=== PATIENT | female | born 1950 | race Two or more races ===

== ENCOUNTER 2018-11-14 07:09 | Inpatient (IN) ==
--- NOTE | 2018-10-22 15:39 | PAT Medication Instructions ---
Medication Instructions Date of Service October 22, 2018 Home Medications calcium crb,[id number] [Citracal + Bone Density] 2 tab PO QPM rosuvastatin 10 mg PO QPM DO NOT take the morning of surgery Citracal + Bone Density 2 tab PO QPM Take evening before surgery rosuvastatin 10 mg PO QPM Other Notes NOTHING TO EAT OR DRINK AFTER MIDNIGHT If you have any questions please call us at [phone] or [phone] or [phone] or [phone]
--- NOTE | 2018-10-24 09:19 | Anesthesiology Consultation ---
Date of Service October 24, 2018 Assessment & Plan (1) Encounter for pre-operative examination: Possible difficult intubation: due to anatomy. Chart Review Chart Review: Acceptable Risk for Surgery and Patient seen in Pre Admission Testing Teaching & Discussion Pre-Anesthesia Teaching/Discussion Notes: Instructed NPO after midnight before surgery,except medications with 15 cc of water. Medication instructions provided according to the PAT guidelines. History Surgery Operation Date: 11/14/18 07:30 Proposed Procedures p Right Robotic Video Assisted Thoracoscopy with Resection of Mediastinal Mass - Nilton Peters MD, FACS Height/Weight Height: 5 ft Weight: 60.8 kg Allergies Allergy/AdvReac Type Severity Reaction Status Date / Time No Known Allergies Allergy Verified 10/18/18 09:04 Medications Home Medications Medication Instructions Recorded Confirmed Last Taken calcium crb,vnt-H2-[id number]-genis 2 tab PO QPM 10/18/18 10/18/18 Unknown [Citracal + Bone Density] rosuvastatin 10 mg PO QPM 10/18/18 10/18/18 Unknown Past Medical History Medical History Hyperlipidemia Mediastinal mass reason for upcoming surgery Sleep apnea CPAP Exercise / Class Metabolic Activity II 4-5 Yardwork/Stairs/Walk up hill Past Family History Family History Brother Family history of diabetes mellitus Past Surgical History Surgical History History of colonoscopy History of dilatation and curettage History of esophagogastroduodenoscopy (EGD) Past Anesthesia History No Hx of Anesthesia Complications and No Family Hx of Anesthesia Complications History of PONV No Hx of PONV and Hx of Motion Sickness (remote hx as child) Social History Smoking Status: Never smoker Do You Dip or Chew Tobacco: No Hx Alcohol Use: No Hx Substance Use: No substance use type: does not use Review of Systems Patient denies chest pain, shortness of breath, dyspnea on exertion, reflux, cough, wheezing, palpitations. Physical Exam Vital Signs VITALS BP 152/94 (Patient advised to followup with PCP regarding elevated BP- patient very anxious regarding surgery) P 79 TEMP 98.2 SP02 98%RA RESP 18 PHYSICAL Full neck and c-spine range of motion. Full TMJ range of motion. TMD 2 finger breaths (small chin) Mallampati Score 3 Dentition: lower partials Lungs: clear throughout to auscultation Cardiac: regular rate and rhythm, no murmurs noted Spine: normal Carotid arteries: negative bruit Extremities: no edema Testing Laboratory Results 10/24/18 09:34 10/24/18 09:34 Blood Type O Positive 10/24/18 09:34 Antibody Screen NEGATIVE 10/24/18 09:34 Electrocardiogram Date: 10/24/18 SR with marked sinus arrhythmia at 72bpm. Otherwise "normal" EKG. Echocardiogram Date: 11/29/16 LVEF 65-69%. No RWMA. Grade I DD. Mild AR. Other Testing Chest CT: 09/21/18: soft tissue attenuation mass in the anterior mediastinum s uspicious for a tumor of thymic origin.
[2018-10-24 10:33] LABS: Basophils # (auto) 0.02 K/uL (0-0.2); Basophils % (auto) 0.4 %; Eosinophils # (auto) 0.12 K/uL (0-0.5); Eosinophils % (auto) 2.6 %; Hematocrit (blood only) 40.5 % (37-47); Hemoglobin 13.3 g/dL (12.0-16.0); Immature Granulocytes # (auto) 0.01 K/uL (0.00-0.02); Immature Granulocytes % (auto) 0.2 %; Lymphocytes # (auto) 1.11 K/uL (1.2-3.4); Lymphocytes % (auto) 24.3 %; Mean Corpuscular Hgb Conc 32.8 g/dL (32-36); Monocytes # (auto) 0.28 K/uL (0.11-0.59); Monocytes % (auto) 6.1 %; Neutrophils # (auto) 3.02 K/uL (1.4-6.5); Neutrophils % (auto) 66.4 %; Platelet Count 230 K/uL (130-400); RDW Coefficient of Variation 14.5 % (11.5-14.5); RDW Standard Deviation 48.7 fL (36.4-46.3); White Blood Count 4.56 K/uL (4.8-10.8)
[2018-10-24 10:43] LABS: BUN Creatinine Ratio 14.7 (10-20); Calcium 8.6 mg/dl (8.5-10.1); Creatinine Clr Calc Pharmacy 58.4 ml/min; Est GFR (African American) 96.7; Est GFR (Non-African American) 83.4; Potassium 4.1 mmol/L (3.5-5.1)
--- NOTE | 2018-11-13 14:34 | History & Physical Report ---
Date of Service November 13, 2018 Assessment & Plan (1) Mass of mediastinum: Pt. is scheduled for Robotic Assisted RVATS with resection of mediastinal mass. History of Present Illness This is a 68-year-old [place] born female who was found to have a mass in her anterior mediastinum. It is small. It is definitely abnormal. She has no symptoms from this whatsoever. In particular I question her closely about any signs or symptoms suggestive of myasthenia gravis. She has no chest pain or palpitations. I had a long talk with the patient and her on 10/09/2018 in the office had another long talk this morning on 11/14/2018. I have explained that this is most likely a thymoma but in any event the proper option here would be to remove this. We have offered her a robot-assisted right thoracoscopy with excision of this mass and a thymectomy. We had a long discussion about risk and benefits and expected postoperative course. We will proceed this morning. Chief Complaint: Anterior Mediastinal Mass Primary Care Provider: Katlyn Silva MD 68 year old female seen in the office by Dr. Peters on 10/09/18. The pt. was referred to him as she had an odd sensation across her chest leading to a CXR. This showed mediastinal fullness, and a subsequent CT scan showed an anterior mediastinal mass. She is otherwise asymptomatic. She denied diplopia or worsening weakness/fatigue throughout the day. No fever, shakes, chills. No weight loss. Allergies Allergy/AdvReac Type Severity Reaction Status Date / Time No Known Drug Allergies Allergy Verified 11/14/18 07:34 Home Medications Home Medications Medication Instructions Recorded Confirmed Type calcium crb,qhj-O2-phx95-genis 2 tab PO QPM 10/18/18 11/14/18 History [Citracal + Bone Density] rosuvastatin 10 mg PO QPM 10/18/18 11/14/18 History Past Med/Surg History Medical History Hyperlipidemia Mediastinal mass reason for upcoming surgery Sleep apnea CPAP Surgical History History of colonoscopy History of dilatation and curettage History of esophagogastroduodenoscopy (EGD) Family History Brother Family history of diabetes mellitus Social History Preferred Language: Citizen Of [place] Communication Ability: Effective Plater Hot Dip Required: No Beliefs That Will Affect Care: None Current Living Situation: Spouse Other Information That Helps Us Care for You: No Feels Safe at Home: Yes Safety Concerns: Feels Safe At This Time Smoking Status: Never smoker Do You Dip or Chew Tobacco: No ; Second Hand Exposure: Yes ( A CHILD) ; Tobacco Cessation Education Requested by Patient: No Hx Alcohol Use: No Hx Substance Use: No Review of Systems Constitutional: no fever, no chills and no fatigue Eyes: no diplopia Ear, Nose, Mouth, Throat: no ear pain Respiratory: no cough and no dyspnea Cardiovascular: no chest pain Gastrointestinal: no abdominal pain Genitourinary: no dysuria Musculoskeletal: no back pain Integumentary: no rash Neurologic: no localized weakness and no generalized weakness
[~2018-11-14 07:09] MED LIST: LR 15ML/HR IV SCH
[2018-11-14] MEDS ORDERED: NEOSTIGMINE METHYLSULFATE 5 MG/5 ML SYR ONE (08:08)
[2018-11-14] MEDS ORDERED: GLYCOPYRROLATE 0.2 MG/ML VIAL ONE (08:08)
[2018-11-14] MEDS ORDERED: LIDOCAINE HCL 2% 2 ML VIAL/AMP(20MG/ML) INFIL ONE (08:08)
[2018-11-14] MEDS ORDERED: MIDAZOLAM HCL 1 MG/ML 2ML VIAL ONE (08:08)
[2018-11-14] MEDS ORDERED: fentaNYL citrate 100 MCG/2 ML VIAL ONE ×2 (08:08→10:07)
[2018-11-14] MEDS ORDERED: PROPOFOL IV EMULSION 10 MG/ML 20 ML VIAL IV ONE (08:08)
[2018-11-14] MEDS ORDERED: DEXAMETHASONE SOD INJ 4 MG/ML VIAL ONE (08:08)
[2018-11-14] MEDS ORDERED: ONDANSETRON INJ 2 MG/ML 2 ML VIAL ONE (08:08)
[2018-11-14] MEDS ORDERED: BUPIVACAINE LIPOSOME 1.3% 266 MG/20 ML VIAL ONE (09:24)
[2018-11-14] MEDS ORDERED: BUPIVACAINE 0.5 % 5 MG/1 ML MPF 30ML VIAL ONE (09:24)
[2018-11-14] MEDS ORDERED: SODIUM CHLORIDE 0.9% PF 50 ML VIAL ONE (09:25)
[2018-11-14] MEDS ORDERED: ATROPINE SULFATE 0.1 MG/ML 10ML SYR IV PRN (09:26)
[2018-11-14] MEDS ORDERED: fentaNYL citrate 100 MCG/2 ML VIAL IV PRN (09:26)
[2018-11-14] MEDS ORDERED: ONDANSETRON INJ 2 MG/ML 2 ML VIAL IV PRN ×2 (09:26→13:57)
[2018-11-14] MEDS ORDERED: ePHEDrine sulfate 50 MG/ML AMP IV PRN (09:26)
--- NOTE | 2018-11-14 09:35 | History & Physical Bridge Note ---
Date of Service November 14, 2018 History & Physical Bridge Note I have examined the patient, reviewed the History & Physical and in the interval since the performance of the History & Physical I have noted the following changes of clinical significance: no changes noted
[2018-11-14] MEDS ORDERED: CEFAZOLIN 250 MG/ML 1 GM VIAL ONE (10:00)
[2018-11-14] MEDS ORDERED: CEFAZOLIN 1000MG 1,000 MG/7.5 ML SYR IV SCH (10:30)
[2018-11-14] MEDS ORDERED: SUCCINYLCHOLINE CHLORIDE 20 MG/ML 10 ML VIAL ONE (11:08)
[2018-11-14] MEDS ORDERED: ROCURONIUM BROMIDE 10 MG/ML 5 ML VIAL ONE (11:08)
[2018-11-14] MEDS ORDERED: PHENYLEPHRINE 100MCG/ML 5ML SYR ONE (11:09)
[2018-11-14] MEDS ORDERED: ePHEDrine sulfate 50 MG/ML SYR ONE (11:09)
--- NOTE | 2018-11-14 11:16 | Post Operative Brief Note ---
PG Immediate Post Op with CF Date of Surgery November 14, 2018 Pre & Post Diagnosis Operation Date: 11/14/18 08:50 Pre-Op Diagnosis: Anterior Mediastinal Mass Post-Op Diagnosis: Thymic mass Procedure Operation Date: 11/14/18 08:50 Actual Procedures p Right Robotic Video Assisted Thoracoscopy with Resection of Mediastinal Mass(R ight) - Nilton Peters MD, FACS Surgeon iNlton Peters MD, FACS Linux Unix System Administrator [employer] VALDEZ Estimated Blood Loss 10 Findings Consistent with Post-Op Diagnosis Specimens Specimen Description: Frozen section #1thymus with pericardium A. Right upper lobe Drains Chest Tube
[2018-11-14] MEDS ORDERED: METOCLOPRAMIDE HCL INJ 5 MG/ML 2 ML VIAL IV ONE (11:35)
[2018-11-14] MEDS ORDERED: METOCLOPRAMIDE HCL INJ 5 MG/ML 2 ML VIAL ONE (11:48)
--- NOTE | 2018-11-14 11:54 | XRay Report ---
XR chest 1V portable HISTORY: 68 years-old Female thymectomy COMPARISON: Chest radiograph 09/04/2018, chest CT 09/13/2018 TECHNIQUE: Portable AP view of the chest FINDINGS: Cardiac silhouette is mildly enlarged. Status post placement of a right-sided chest tube, distal tip terminating adjacent to the right lung apex. No definite pneumothorax identified. Subcutaneous emphys black about the lateral right chest wall. Mild right hemidiaphragmatic elevation with right perihilar a nd bibasilar opacities. Mild pulmonary vascular congestion. Degenerative changes of the shoulders and spine. Indeterminate 9 mm radiodensity projects about the left shoulder. IMPRESSION: 1. Right-sided chest tube distal tip terminates adjacent to the right lung apex. No definite pneumoth orax. 2. Right perihilar and bibasilar opacities suggest probable atelectasis. 3. Cardiomegaly. The above report was generated using voice recognition software. It may contain grammatical, syntax o r spelling errors. Electronically signed by: Tony Lugo M.D. 11/14/2018 11:53 AM
[2018-11-14] MEDS ORDERED: LABETALOL HCL IV 5 MG/ML 20ML IV ONE (12:53)
[2018-11-14] MEDS: LABETALOL HCL IV 5 MG/ML 20ML IV PRN ×2 (12:56→13:07)
--- NOTE | 2018-11-14 13:15 | Anesthesiology Progress Note ---
Date of Service November 14, 2018 Anesthesia Post Procedure Vital Signs Vital Signs: Temp Pulse Pulse Resp BP BP Pulse Ox 11/14/18 13:00 89 16 163/100 H 214/97 H 100 11/14/18 12:50 88 16 173/99 H 221/99 H 100 11/14/18 12:45 91 H 17 186/108 H 230/102 H 100 11/14/18 12:35 89 16 190/112 H 228/112 H 100 11/14/18 12:25 36.4 C L 89 18 190/102 H 100 11/14/18 12:15 36.4 C L 83 19 190/107 H 100 11/14/18 12:05 36.4 C L 120 H 23 188/111 H 100 11/14/18 11:55 36.4 C L 76 20 190/110 H 100 11/14/18 11:45 36.4 C L 74 21 178/110 H 100 11/14/18 11:37 36.4 C L 78 16 178/98 H 98 11/14/18 07:28 36.8 C 84 20 152/98 H 96 Transfer of Care Handoff Completed per policy Notes Mental Status: alert / awake / arousable Patient Amnestic to Procedure: Yes Nausea / Vomiting: adequately controlled Pain: adequately controlled Airway Patency, RR, SpO2: stable & adequate BP & HR: stable & adequate Hydration State: stable & adequate Anesthetic Complications: no major complications apparent Notes: post op, patient had urinary retention and was straight cath'd for 700cc. Dr Peters made aware, incase this presents again overnight.
[2018-11-14] MEDS ORDERED: HydrALAZINE HCL 20 MG/ML VIAL IV PRN (13:57)
[2018-11-14] MEDS ORDERED: OXYCODONE HCL IR 5 MG TAB (IMMEDIATE RELEASE) PO PRN (13:57)
[2018-11-14] MEDS ORDERED: MoRPHine SULFATE 2 MG/ML CARP IV PRN (13:57)
[2018-11-14] MEDS: D5W AND 1/2NSS 1,000 ML IV SCH ×2 (14:17→23:39)
[2018-11-14] MEDS: METOCLOPRAMIDE HCL INJ 5 MG/ML 2 ML VIAL IV SCH ×2 (14:26→22:08)
[2018-11-14] MEDS: ACETAMINOPHEN 1,000 MG/100 ML VIAL IV SCH ×3 (14:32→22:09)
[2018-11-14] MEDS: DOCUSATE SODIUM 100 MG CAP PO SCH (20:52)
[2018-11-14] MEDS ORDERED: ROSUVASTATIN CALCIUM 10 MG TAB PO SCH (21:00)
[2018-11-14] MEDS ORDERED: CALCIUM 600MG + VIT D 400 IU TAB PO SCH (21:00)
--- NOTE | 2018-11-15 00:13 | Operative Report ---
DATE OF OPERATION: 11/14/2018 PREOPERATIVE DIAGNOSIS: Anterior mediastinal mass. POSTOPERATIVE DIAGNOSIS: Malignant anterior mediastinal mass. PROCEDURES: Robot-assisted right thoracoscopic excision of mediastinal mass/thymectomy. SURGEON: Nilton Peters MD. CIA AGENT: COURTNEY Roque (Mr. Love was present for the entire case and was instrumental in being at the patient's bedside while I was at the console and closed the skin incisions at the conclusion). ANESTHESIA: General anesthesia with a single lumen tube. SPECIFICS OF PROCEDURE AND FINDINGS: Danielle Huff is a 68-year-old [place] born woman who was serendipitously found to have a mass in her anterior mediastinum. It is a little bit further down in her chest, just above her aorta. This is anterior. We had a long discussion in the office and she elected to proceed with a resection of this. On 11/14/2018, the patient was brought to the operating room and underwent an uncomplicated robot-assisted thoracoscopic excision of this mass with a thymectomy. This was growing into the pericardium, so I excised the pericardium and there were no other adhesions to this mass. I did remove a small segment of lung, which had been attached to the pericardial fat and appeared to be injured during our takedown. This was really to control an air leak. The patient tolerated it well. DESCRIPTION OF PROCEDURE: The patient was brought to the operating room and laid in supine position. General anesthesia was induced and endotracheal intubation was performed with a single lumen tube. The patient was left in the supine position, but a roll was placed under her right side and the arm was allowed to fall a bit further down. After prepped and draped in usual sterile fashion, calling appropriate timeout and giving prophylactic antibiotics and a 5 mm port was placed just in the crease of the breast inferiorly and a bit laterally. Upon going in, there were really no adhesions except from the right upper lobe to some pericardial fat. All these were fairly flimsy. An 8 mm port was then placed medially below the level of the breast and then laterally just lateral to the pectoralis muscle up high near the axilla. These were all done under thoracoscopic guidance. We then placed an lead recreation assistant's port down above the costal margin between the camera port and the anterior port. It should be noted for these 4 ports, Exparel solution was injected into these; 266 mg of Exparel and 20 mL of solution were mixed with 30 mL of 0.5% Marcaine without epinephrine and 250 mL of normal saline. The solution was used to inject each of these incisions. Just prior to docking the robot, we then used this to do an intercostal block from the 2nd to the 11th rib without difficulty under thoracoscopic guidance. Robot was then docked and we had good exposure of this mass. Upon taking down the flimsy adhesions to the pericardial fat below the mass, there was a small tear in the lung, which was excised out. This was very small, but I did not want to have an air leak, so we excised this and delivered it off the field. Upon coming in, there were some flimsy adhesions, which came down quite easily and I could expose the mass quite nicely and pulled the lung away. This was anterior to the phrenic nerve, which was easily identified. I then opened the pericardium below where this mass was attached to the pericardium and I excised this in a circular fashion around the area of adhesion and removed the pericardium, essentially the entire area that was attached. I had a good margin around this. There were really no other adhesions to this mass. We placed this in an Endobag and removed it from the field. There was no bleeding noted. The defect was superior and small enough that I was not concerned about any cardiac herniation. We then placed a chest tube in the lead recreation assistant's port, sutured in place with a heavy silk suture and tested, and there was no air leak. A 4-0 Monocryl was used in running subcuticular fashion to close the wound edges. The patient tolerated it well with negligible blood loss and was extubated in the room. I attest to the content of the Intraoperative Record and any orders documented therein. Any exception s are noted below.
[2018-11-15] MEDS: ACETAMINOPHEN 1,000 MG/100 ML VIAL IV SCH (05:32)
[2018-11-15] MEDS: METOCLOPRAMIDE HCL INJ 5 MG/ML 2 ML VIAL IV SCH (06:34)
--- NOTE | 2018-11-15 07:09 | XRay Report ---
XR chest 1V portable CLINICAL HISTORY: thymectomy POSTOPERATIVE STUDY COMPARISON STUDY: 11/14/2018 FINDINGS: The right-sided chest tube remains unchanged in position. There is no pneumothorax. The hea rt is the upper limits of normal in size. There are bibasilar opacities, statistically atelectatic. T here is no overt failure.[ IMPRESSION: No significant change from the prior study. Persistent basilar opacity statistically atel ectatic. No pneumothorax. Electronically signed by: Bello Shannon M.D. 11/15/2018 7:08 AM
[2018-11-15 07:15] LABS: Hematocrit (blood only) 41.8 % (37-47); Hemoglobin 14.2 g/dL (12.0-16.0); Mean Corpuscular Volume 90.3 fL (80-100); Mean Platelet Volume 10.9 fL (7.4-10.4); Platelet Count 233 K/uL (130-400); RDW Coefficient of Variation 14.4 % (11.5-14.5); RDW Standard Deviation 47.8 fL (36.4-46.3); Red Blood Count 4.63 M/uL (4.2-5.4); White Blood Count 12.45 K/uL (4.8-10.8)
[2018-11-15 07:25] LABS: Partial Thromboplastin Ratio 0.9; Partial Thromboplastin Time 25.6 Seconds (21.0-31.0)
--- NOTE | 2018-11-15 07:50 | Anesthesiology Progress Note ---
Date of Service November 15, 2018 Anesthesia Post Procedure Vital Signs Vital Signs: Temp Pulse Pulse Pulse Resp BP BP 11/15/18 07:18 36.6 C 93 H 18 143/82 H 11/15/18 05:45 36.5 C 97 H 16 143/74 H 11/15/18 03:58 36.6 C 99 H 16 153/79 H 11/14/18 22:54 36.4 C L 97 H 16 132/72 11/14/18 20:58 36.3 C L 96 H 14 146/84 H 11/14/18 16:45 36.3 C L 95 H 16 126/76 11/14/18 15:45 36.3 C L 98 H 14 144/84 H 11/14/18 15:25 11/14/18 14:48 36.4 C L 98 H 18 156/96 H 11/14/18 14:20 36.4 C L 102 H 18 164/92 H 11/14/18 13:59 36.4 C L 95 H 15 164/98 H 11/14/18 13:30 36.7 C 93 H 15 161/91 H 11/14/18 13:20 36.7 C 91 H 15 154/94 H 211/95 H 11/14/18 13:10 36.7 C 91 H 15 160/90 H 211/95 H 11/14/18 13:00 89 16 163/100 H 214/97 H 11/14/18 12:50 88 16 173/99 H 221/99 H 11/14/18 12:45 91 H 17 186/108 H 230/102 H 11/14/18 12:35 89 16 190/112 H 228/112 H 11/14/18 12:25 36.4 C L 89 18 190/102 H 11/14/18 12:15 36.4 C L 83 19 190/107 H 11/14/18 12:05 36.4 C L 120 H 23 188/111 H 11/14/18 11:55 36.4 C L 76 20 190/110 H 11/14/18 11:45 36.4 C L 74 21 178/110 H 11/14/18 11:37 36.4 C L 78 16 178/98 H Pulse Ox 11/15/18 07:18 94 11/15/18 05:45 95 11/15/18 03:58 94 11/14/18 22:54 92 11/14/18 20:58 93 11/14/18 16:45 96 11/14/18 15:45 96 11/14/18 15:25 97 11/14/18 14:48 98 11/14/18 14:20 99 11/14/18 13:59 95 11/14/18 13:30 99 11/14/18 13:20 100 11/14/18 13:10 100 11/14/18 13:00 100 11/14/18 12:50 100 11/14/18 12:45 100 11/14/18 12:35 100 11/14/18 12:25 100 11/14/18 12:15 100 11/14/18 12:05 100 11/14/18 11:55 100 11/14/18 11:45 100 11/14/18 11:37 98 Notes Mental Status: alert / awake / arousable and participated in evaluation Patient Amnestic to Procedure: Yes Nausea / Vomiting: adequately controlled Pain: adequately controlled Airway Patency, RR, SpO2: stable & adequate BP & HR: stable & adequate Hydration State: stable & adequate Anesthetic Complications: no major complications apparent
[2018-11-15 07:52] LABS: Creatinine Clr Calc Pharmacy 59.2 ml/min; Est GFR (African American) 98.3; Est GFR (Non-African American) 84.9
--- NOTE | 2018-11-15 08:20 | XRay Report ---
SINGLE VIEW CHEST CLINICAL HISTORY: Chest tube removal. Status post thymectomy. FINDINGS: An AP, portable, upright chest radiograph is compared to study dated 11/15/2018 and correlat ed with chest CT dated 09/13/2018. The cardiomediastinal silhouette is unremarkable noting atheroscler otic calcification of the thoracic aorta. Left basilar opacities are unchanged and likely represent s carring/atelectasis. Lungs are otherwise clear. No large pleural effusion is identified. Apical scarr ing is observed. The right-sided chest tube has been removed. No pneumothorax is seen. The skeletal s tructures are osteopenic. The bony thorax is grossly intact. IMPRESSION: 1. A right-sided chest tube has been removed. No pneumothorax is seen. 2. Airspace opacities at the left lung base are similar to yesterday. Electronically signed by: Montez Marin M.D. 11/15/2018 8:19 AM
[2018-11-15] MEDS ORDERED: ENOXAPARIN INJ 40 MG/0.4 ML SYR SQ SCH (09:00)
[2018-11-15] MEDS: DOCUSATE SODIUM 100 MG CAP PO SCH (09:29)
--- NOTE | 2018-11-15 09:51 | Discharge Summary ---
ADMISSION DIAGNOSIS: Anterior mediastinal mass. DISCHARGE DIAGNOSIS: Anterior mediastinal mass. HOSPITAL COURSE: This is a 68-year-old female who was seen and evaluated by Dr. Peters as an outpatient secondary to an anterior mediastinal mass. Because of the appearance of the mass on preoperative CT scans, Dr. Peters felt surgical resection was indicated and on the day of admission, he took the patient to the operating room and performed a robotic-assisted right thoracoscopic excision of this mediastinal mass with a thymectomy. The patient's surgery was without apparent complications and the final pathology of this mass was pending at the time of discharge. Her postoperative course was uneventful. Following her surgery, she was able to ambulate in the hallway. She was tolerating a diet and voiding without difficulty. Her chest tube was discontinued on postop day #1 and a post-pull chest x-ray did not demonstrate any pneumothorax. The patient had adequate pain control and was deemed stable for discharge home on postoperative day #1. DISCHARGE MEDICATIONS: All of her home medications were unchanged. The only addition was Tylenol and Ultram to be ordered for pain control. DISCHARGE INSTRUCTIONS: The patient was given written and verbal instructions. She was told to ambulate daily, continue to use her incentive spirometer several times per hour. She was told that she could remove her dressings in 3 days and shower thereafter, but not take any tub baths. She was told not to drive or fly until cleared by Dr. Peters and Dr. Peters's office will call her for an appointment in approximately 1 week. She was instructed to get a chest x-ray 1 hour before her appointment with Dr. Peters.
[2018-11-15] MEDS ORDERED: ACETAMINOPHEN 325 MG TAB PO SCH (12:00)
--- NOTE | 2018-11-21 06:28 | Coding Query ---
PATHOLOGY To promote full compliance with coding requirements relating to patient care, physician participation is requested in all cases of circular sawyer helper uncertainty. Please assist us with the question(s) below: Please review the Pathology report and please document any relevant diagnosis(es) below.Thank you , SHAUNA Sapp CCS Diagnosis(es): Thymoma MTDD
== END 2018-11-15 10:23 | disposition home or self-care (01) | DRG 804 ==
LOC: ASU 07:09 → 3N 11:21
DX: G47.30 Sleep apnea, unspecified; E78.5 Hyperlipidemia, unspecified; D15.0 Benign neoplasm of thymus; Z83.3 Family history of diabetes mellitus